=== PATIENT | female | born 1960 | race Caucasian/White ===

== ENCOUNTER 2017-04-20 07:13 | Day surgery (SDC) | payer OTHER ==
[2017-04-19 14:55] VITALS: BP 106/69
[~2017-04-20] VITALS: Ht 159.3 cm; Wt 59.0 kg
[~2017-04-20 07:13] MED LIST: ALPR-475 PO; BUPIVACAINE/PF-EPI 0.5% 1:200K ONE; DICL100G8 TP; HYDR-879 PO; ISOSULFAN BLUE 10 MG/ML, 5ML IV ONE; LIDO15CR9 TP; NORT10CA PO; TIZA4TAB PO
[2017-04-20] MEDS ORDERED: FENTANYL PF 250 MCG/5ML ONE (08:18)
[2017-04-20] MEDS ORDERED: MIDAZOLAM 1 MG/ML, 2ML ONE ×2 (08:18→08:19)
[2017-04-20] MEDS ORDERED: LACTATED RINGERS 1,000 ML IV SCH (08:43)
[2017-04-20] MEDS ORDERED: LIDOCAINE 1%, 2ML ONE (08:45)
[2017-04-20] MEDS ORDERED: BUPIVACAINE/PF 0.25% ONE (08:50)
[2017-04-20] MEDS ORDERED: CEFAZOLIN 1,000 MG ONE (08:54)
[2017-04-20] MEDS ORDERED: ONDANSETRON 2MG/ML, 2ML ONE (08:54)
[2017-04-20] MEDS ORDERED: DEXAMETHASONE 4 MG/ML, 1ML ONE (08:54)
[2017-04-20] MEDS ORDERED: PROPOFOL 10 MG/ML, 20ML ONE (08:54)
[2017-04-20] MEDS ORDERED: PHENYLEPHRINE 10 MG/ML ONE (08:54)
[2017-04-20] MEDS ORDERED: SUCCINYLCHOLINE 20 MG/ML, 10ML ONE (08:54)
[2017-04-20] MEDS ORDERED: LIDOCAINE 1%, 2ML SQ PRN (09:00)
[2017-04-20] MEDS ORDERED: HYDROmorphone 1 MG/ML, 1ML ONE (09:59)
[2017-04-20] MEDS ORDERED: HYDROcodone/APAP 7.5-325MG/15ML UDC ONE (10:53)
[2017-04-20] MEDS ORDERED: ONDANSETRON 2MG/ML, 2ML IVPush PRN (11:00)
[2017-04-20] MEDS ORDERED: MIDAZOLAM 1 MG/ML, 2ML IV PRN (11:00)
[2017-04-20] MEDS ORDERED: KETOROLAC 30 MG/1 ML IV PRN (11:00)
[2017-04-20] MEDS ORDERED: HYDROmorphone 1 MG/ML, 1ML IV PRN (11:00)
[2017-04-20] MEDS ORDERED: PROMETHAZINE 25 MG/ML, 1ML IV PRN (11:00)
[2017-04-20] MEDS ORDERED: LABETALOL 5MG/ML, 20ML IV PRN (11:00)
[2017-04-20] MEDS ORDERED: ALBUTEROL/IPRATROPIUM 2.5MG/0.5MG, 3 ML NPPB PRN (11:00)
[2017-04-20] MEDS ORDERED: MEPERIDINE/PF 25MG/0.5ML IVPush PRN (11:00)
[2017-04-20] MEDS ORDERED: HYDROcodone/APAP 7.5-325MG/15ML UDC PO PRN (11:00)
[2017-04-20] MEDS ORDERED: hydrALAzine 20 MG/ML, 1ML IV PRN (11:00)
[2017-04-20] MEDS ORDERED: FENTANYL PF 100 MCG/2ML ONE ×2 (11:01→11:19)
[2017-04-20] MEDS: FENTANYL PF 100 MCG/2ML IV PRN ×4 (11:01→11:30)
[2017-04-20] MEDS ORDERED: KETOROLAC 30 MG/1 ML ONE (11:19)
== END 2017-04-20 13:33 ==
LOC: CFH 07:13 → OUT 13:33
PROVIDERS: ATTEND Surgery
DX: C50.212 Malignant neoplasm of upper-inner quadrant of left female breast (principal); R59.9 Enlarged lymph nodes, unspecified; I25.10 Atherosclerotic heart disease of native coronary artery without angina pectoris; K21.9 Gastro-esophageal reflux disease without esophagitis; Z88.8 Allergy status to other drugs, medicaments and biological substances; Z98.890 Other specified postprocedural states
CPT/HCPCS: 19301; 38525; 76942; 88307; 88329; G0206; J0330; J0690; J1100; J1170; J1885; J2250; J2370; J2405; J2704; J3010; J3490

== ENCOUNTER → 2017-06-01 | Outpatient (CLI) | payer OTHER ==
[~2017-06-01] MED LIST changes: -BUPIVACAINE/PF-EPI 0.5% 1:200K ONE; +DICL100G19 TP; -DICL100G8 TP; -ISOSULFAN BLUE 10 MG/ML, 5ML IV ONE
== END | disposition home or self-care (01) ==
LOC: EDSTATUS 05-08 11:17 → ROC 13:42
PROVIDERS: ATTEND Radiology Radiation Oncology
DX: C50.912 Malignant neoplasm of unspecified site of left female breast (principal); N64.89 Other specified disorders of breast; Z17.0 Estrogen receptor positive status [ER+]
CPT/HCPCS: 99214; G0463

== ENCOUNTER → 2017-09-14 | Outpatient (CLI) | payer OTHER | END | disposition home or self-care (01) | LOC: ROC 13:50 | PROVIDERS: ATTEND Radiology Radiation Oncology | DX: C50.912 Malignant neoplasm of unspecified site of left female breast (principal); N64.89 Other specified disorders of breast; Z17.0 Estrogen receptor positive status [ER+]; Z98.890 Other specified postprocedural states | CPT/HCPCS: 99213; G0463 ==